=== PATIENT | male | born 1970 | race African-American/Black ===

== ENCOUNTER 2024-01-23 20:18 | Inpatient (IN) | payer OTHER ==
[2024-01-23 20:55] VITALS: BMI 23.6
[2024-01-23] MEDS ORDERED: NICOTINE POLACRILEX 4 MG GUM BUC PRN (21:16)
[2024-01-23] MEDS ORDERED: BENZONATATE 200 MG CAPSULE PO PRN (21:16)
[2024-01-23] MEDS ORDERED: LOPERAMIDE HCL 2 MG CAPSULE PO PRN (21:16)
[2024-01-23] MEDS ORDERED: IBUPROFEN 400 MG TABLET (FP) PO PRN (21:16)
[2024-01-23] MEDS ORDERED: BENZOCAINE/MENTHOL (CHLORASEPTIC ) LOZENGE MM PRN (21:16)
[2024-01-23] MEDS ORDERED: NALOXONE HCL 0.4 MG/ML VIAL IM PRN (21:16)
[2024-01-23] MEDS ORDERED: MAGNESIUM HYDROX 2400MG/30ML ORAL SUSPENSION 30 ML CUP PO PRN (21:16)
[2024-01-23] MEDS ORDERED: MAG HYDROX/AL HYDROX/SIMETH 30 ML UNIT-DOSE CUP PO PRN (21:16)
[2024-01-23] MEDS ORDERED: NALOXONE HCL (KLOXXADO) 8 MG SPRAY NS PRN (21:16)
[2024-01-23] MEDS ORDERED: POLYETHYLENE GLYCOL (HEALTHYLAX) 3350 17 GM PACKET PO PRN (21:16)
[2024-01-23] MEDS ORDERED: IBUPROFEN 600 MG TABLET (FP) PO PRN (21:16)
[2024-01-23] MEDS ORDERED: BISMUTH SUBSALICYLATE 524 MG/30 ML PO PRN (21:16)
[2024-01-23] MEDS ORDERED: guaiFENesin 600 MG TABLET.ER (FP) PO PRN (21:16)
[2024-01-23] MEDS ORDERED: ACETAMINOPHEN 325 MG TABLET (FP) PO PRN (21:16)
[2024-01-23] MEDS ORDERED: DICYCLOMINE HCL 10 MG CAPSULE PO PRN (21:16)
[2024-01-23] MEDS ORDERED: MELATONIN 5 MG TABLETS ONE (22:17)
[2024-01-23] MEDS ORDERED: methaDONE HCL 10 MG TABLET (FOR DETOX USE ONLY) ONE (22:17)
[2024-01-23] MEDS: methaDONE HCL 10 MG TABLET (FOR DETOX USE ONLY) PO ONE (22:24)
[2024-01-23] MEDS: THIAMINE HCL 100 MG TABLET (FP) PO SCH (22:25)
[2024-01-23] MEDS: MELATONIN 5 MG TABLETS PO SCH (22:25)
[2024-01-24] MEDS: PRENATAL VITAMINS W/ FOLIC ACID TABLET (FP) PO SCH (09:25)
[2024-01-24] MEDS: NICOTINE 21 MG/24 HOURS TOPICAL PATCH TD SCH (09:25)
[2024-01-24] MEDS: methaDONE HCL 10 MG TABLET (FOR DETOX USE ONLY) PO ONE (09:26)
[2024-01-24] MEDS: METHOCARBAMOL 500 MG TABLET PO PRN (09:27)
[2024-01-24 11:53] LABS: HEMATOCRIT 38.1 % (35.4-49); HEMOGLOBIN 12.7 GM/dL (11.7-16.9); MCH 28.8 pg (25.7-33.7); MCHC 33.4 g/dl (32.0-35.9); MEAN CELL VOLUME 86.3 fl (80-96); MEAN PLT VOLUME 6.8 fl (7.5-11.1); PLATELET COUNT 457 10^3/uL (134-434); RBC 4.42 M/mm3 (4.00-5.60); WHITE BLOOD COUNT 7.1 K/mm3 (4.0-10.0)
[2024-01-24 12:18] LABS: CHLORIDE 103 mmol/L (98-107); POTASSIUM 4.4 mmol/L (3.5-5.1); SODIUM 139 mmol/L (136-145)
[2024-01-24 12:43] LABS: ALBUMIN 2.8 g/dl (3.4-5.0); ANION GAP 7 mmol/L (4-13); BLOOD UREA NITROGEN 13.5 mg/dL (7-18); CALCIUM 8.8 mg/dL (8.5-10.1); CO2 29 mmol/L (21-32)
[2024-01-24 12:44] LABS: GLUCOSE,RANDOM 94 mg/dL (74-106)
[2024-01-24 12:45] LABS: CREATININE 0.7 mg/dL (0.55-1.3); SGOT/AST 14 U/L (15-37); SGPT/ALT 27 U/L (13-61)
[2024-01-24 12:46] LABS: TOT PROT 6.4 g/dl (6.4-8.2)
[2024-01-24 12:47] LABS: BILIRUBIN,TOTAL 0.6 mg/dL (0.2-1)
[2024-01-24 12:48] LABS: ALK PHOS 126 U/L (45-117)
[2024-01-24] MEDS: ONDANSETRON *ODT* 4 MG TABLET SL PRN (18:53)
[2024-01-24] MEDS: SUVOREXANT 10 MG TABLET PO PRN (22:19)
[2024-01-24] MEDS: cloNIDine HCL 0.1 MG TABLET PO PRN (22:20)
[2024-01-27] MEDS: methaDONE HCL 10 MG TABLET (FOR DETOX USE ONLY) PO ONE (09:25)
[2024-01-27] MEDS: SUVOREXANT 15 MG TABLET PO PRN (22:09)
[2024-01-28 10:17] VITALS: BP 138/87; PULSE 79; RESP 16; TEMP 97.7
== END 2024-01-28 09:45 | disposition home or self-care (01) | DRG 773 ==
LOC: YASAS 20:18 → Y6N 22:54
PROVIDERS: ADMIT Allergy & Immunology; ATTEND Surgery
PROC: HZ2ZZZZ Detoxification Services for Substance Abuse Treatment (ICD-10-PCS; principal; 2024-01-23)
DX: F11.23 Opioid dependence with withdrawal (principal); F14.20 Cocaine dependence, uncomplicated; F17.210 Nicotine dependence, cigarettes, uncomplicated; F19.282 Other psychoactive substance dependence with psychoactive substance-induced sleep disorder; F19.24 Other psychoactive substance dependence with psychoactive substance-induced mood disorder; G47.00 Insomnia, unspecified; Z56.0 Unemployment, unspecified; Z59.01 Sheltered homelessness
CPT/HCPCS: 36415; 80053; 80307; 85027; 86780; 93005; 93010; Q0162